=== PATIENT | male | born 1995 | race Caucasian/White ===

== ENCOUNTER 2025-06-13 02:15 | Day surgery (SDC) | payer OTHER, SELFPAY ==
[2025-06-09 10:20] VITALS: BMI 24.6
--- NOTE | 2025-06-09 10:25 | PC.NURSE ---
[facility] has started construction of its new state of the art ER which will open Spring 2026. With this, we anticipate parking may be a challenge for some our surgical patients and families. Parking spaces are limited but are available for all Surgical, obstetrics, and ER patients sharing this lot. If you arrive and find you are having a hard time finding a parking space, please note that we understand the challenges, please drive around the hospital and park near Hospital Entrance 1. When you enter this entrance, you can ask a volunteer to direct or take you back to the surgical waiting area to check in. We appreciate everyone?s understanding of these expected challenges while we build for your future. Report to the Outpatient Waiting Room, entrance under the green pavilion located off [address], at time _0930 on date _06/13/25_. Planned Procedure Time: __1130_.? Time changes happen often and if your time is changed the preop area will call you the afternoon before. - You and your visitor will be asked to self-screen and do not enter if you have any COVID symptoms. Please call surgeon if you need to reschedule. - A mask is optional within the hospital at this time. Patients may have clear liquids (water, carbonated beverages, clear teas, apple juice) until 3 hours prior to surgery with a maximum of 20 ounces. - No food from midnight until time of surgery and no smoking, or chewing tobacco (or any form of nicotine). No chewing gum, candy or mints. Take only the following medications with a SIP of water on the morning of surgery: NONE DO NOT STOP ANY OF YOUR OTHER PRESCRIPTION MEDICATIONS PRIOR TO SURGERY EXCEPT THE FOLLOWING Hold all vitamins and supplements for 3 days per anesthesiologist. Medications to discontinue per physician Date to take last dose Please no make-up, nail greek, hairspray, perfume, deodorant, or body powder the day of surgery.? No jewelry (including any body piercings) or valuables the day of surgery, leave them at home.? Please take a shower or bath the night before, or the morning of, surgery with an antibacterial soap.? Wear comfortable, loose fitting clothing.? Children are encouraged to wear pajamas. - Jewelry must be removed prior to entering the operating room.? Rings and piercings that are not removed may be cut off. - The hospital will not accept responsibility for valuables.? - Please leave all valuables, including medications, at home the day of surgery. If you are going home after surgery, a licensed pole truck driver must drive you home.? - NO public transportation without another adult if you receive anesthesia. - We recommend that an adult stay with you for 24 hours following discharge. - We also recommend that you do not drive, make important decision, drink alcoholic beverages, or take any drugs that were not prescribed by your health care provider for at least 24 hours after your discharge time. For Pediatric surgeries, we recommend two adults accompany the child home. Follow any additional instructions given to you from your surgeon. Telephone instructions given to __PATIENT__and asked if any additional questions and then verbalized understanding. Patient advised to call surgeon office or pre surgery nurse liaison [phone] if any additional questions.
[2025-06-13] VITALS (10 sets, daily range): BP systolic 100–130; BP diastolic 53–84; PULSE 47–60; RESP 10–20; TEMP 36.3–36.8; O2SAT 98–100; BMI 24.6
[2025-06-13] MEDS: LACTATED RINGERS 1,000 ML 30 ML IV CONT (09:38)
--- NOTE | 2025-06-13 10:53 | P.HP_ITS ---
History of Present Illness History of Present Illness Consent: Risks, benefits, and alternatives have been discussed and questions answered. Patient agrees to proceed with procedure. Chief complaint: desires sterilization Narrative: Andrzej Newton is a 30 year old male who desires permanent sterilization and who presents today for bilateral vasectomy. He was recently evaluated in the urology office and had undergone a discussion of the risks, benefits, alt ernatives to vasectomy for sterilization and he expressed understanding and agreement to proceed. The patient denies any changes passes baseline today and is ready for the procedure. Review of Systems Review of Systems: Constitutional: No fevers or chills Eyes: No changes in vision HENT: No hearing loss Cardiovascular: No chest pain or palpitations Respiratory: No shortness of breath, cough, wheezing GI: No abdominal pain, nausea, or vomiting : No dysuria or difficulty urinating Heme: No easy bruising or bleeding Skin: No rash or itching MSK: No myalgias or joint pain Psych: No hallucinations Neuro: No lateralized numbness or tingling PMFSH Social History Social History Smoking status: Never smoker Alcohol intake: current Drinks per week: 2 Living arrangements: with family Meds Home Medications and Allergies Home Medications ?Medication ?Instructions ?Recorded ?Confirmed ?Type No Home Medications 06/09/25 06/09/25 H istory Allergies Allergy/AdvReac Type Severity Reaction Status Date / Time No Known Allergies Allergy Verified 06/13/25 10:52 Exam Narrative: General: Alert, no acute distress Head: Normocephalic, atraumatic Eyes: Extraocular movements intact Neck: No JVD, trachea midline Respiratory: Symmetric chest rise, nonlabored breathing on room air CV: Normal rate, adequate peripheral perfusion Abdomen: Soft, nontender, nondistended : Deferred Skin: Warm/dry Extremities: No peripheral edema, no cyanosis Neuro: No focal deficits Psych: Answers questions appropriately, appropriate mood Assessment and Plan Assessment and plan (1) Encounter for sterilization: Code(s): Z30.2 - Encounter for sterilization Status: Acute Assessment and Plan: 30yM who desires permanent sterilization - To OR for bilateral vasectomy - Risks, benefits, alternatives reviewed with the patient. He is amenable to proceed. - Anticipate discharge home thereafter
--- NOTE | 2025-06-13 10:53 | WPDHPUPDATE1 ---
History and Physical Update Update Date/Time: 06/13/25 10:53 History and Physical has been reviewed, including an updated exam of the patient. There are NO changes in the patient's condition. Risks, benefits, and alternatives have been discussed and questions answered. Patient agrees to proceed with procedure.
--- NOTE | 2025-06-13 11:02 | P.PNAN_ITS ---
Anes - Initial Pre Proc Eval Procedure: Operation Date: 06/13/25 11:30 Proposed Procedures p Bilateral Vasectomy - Taqueria Estrada MD Date/Time: 06/13/25 11:02 Surgeon: Taqueria Estrada MD Pre Op Diagnosis: desires sterilization Patient Data Age: 30 Gender: M Height: 1.78 m Weight: 77.8 kg Last Vital Signs Temp 36.8 C 06/13/25 09:38 Pulse 60 06/13/25 09:38 Resp 14 06/13/25 09:38 BP 122/67 06/13/25 09:38 Pulse Ox 99 06/13/25 09:38 O2 Del Method Room Air 06/13/25 09:38 Allergies Allergy/AdvReac Type Severity Reaction Status Date / Time No Known Allergies Allergy Verified 06/13/25 10:52 Home Medications ?Medication ?Instructions ?Recorded ?Confirmed ?Type No Home Medications 06/09/25 06/09/25 H istory Patient hx anesthesia problems: none Family hx anesthesia problems: none Results Review: All pre-operative results and documents have been reviewed as part of the pre- operative evaluation. [facility] Social History Social History Smoking status: Never smoker Alcohol intake: current Drinks per week: 2 Living arrangements: with family Anes - Eval Final PreProcedure Day of Procedure 06/13/25 11:02 Patient weight: normal Heart: regular rate and rhythm Lungs: clear to auscultation and normal air movement Airway: Mallampati scale class II Neurological: alert and oriented Last oral intake: >/= 8 hours ASA classification: I Emergent: no Anesthetic plan: proceed Anesthesia type and monitoring: general GIVS and standard monitoring Results Review: All pre-operative results and documents have been reviewed as part of the pre- operative evaluation. Informed Consent: The patient's anesthetic plan and its attendant risks and benefits were discussed with the patient/family/POA. Questions were solicited and answers provided to the satisfaction of the patient/family/POA.
[2025-06-13] MEDS: ceFAZolin 2 GM in SODIUM CHLORIDE 0.9% IV 50 ML 100 ML IVPB (11:14)
--- NOTE | 2025-06-13 11:27 | S_PTH ---
PATIENT: Andrzej Newton LOC: [facility] U#:[id number] AGE/SX: 30/M ROOM: RE06/13/[address]: Taqueria Estrada MD : 1995 BED: DIS: 06/13/2025 SPEC #: [id number] RECD: 06/13/25 13:02 STATUS: RHONA REQ #: [id number] LUCIO: 06/13/25 11:[address]: Taqueria Estrada DEPT: [facility] Surgical RECD BY: Mahogany Benitez MLT, ([facility]) ENTERED: 06/13/25 13:02 SP TYPE: Surgical OTHR DR: Yuridia HillMD Tissues: A - Vas Deferens B - Vas Deferens Procedures: Gross Exam Level 1
[2025-06-13] MEDS: BUPivacaine HCL 0.25% PF 10 ML VIAL INFILTRATE (11:34)
--- NOTE | 2025-06-13 11:46 | W.PM.PROC2 ---
Procedure Note - Detailed Date of Procedure 06/13/25 Pre-op Diagnosis desires sterilization Post-op Diagnosis Same Procedure Performed 1. Bilateral vasectomy Surgeon Taqueria Estrada MD Anesthesia General Description of Procedure Under sterile conditions, 0.25% plain marcaine was administered to provide local skin anesthesia and a regional vasal block. Next, the no-scalpel vasectomy approach was used and Bob forceps were used to spread the skin open the right upper hemiscrotum. A clamp was used to grasp the right vas deferens, which was brought out through the skin opening. A scalpel was used to incise the sheath of the vas and Adson forceps were used to grasp the vas and deliver it out of the sheath. The vas was dissected free of any attachments and a clamp was placed on either side of the freed vas. Next, a 1-2 cm segment of the right vas was cut and collected for pathologic analysis. Thermal cautery was used to cauterize both free ends of the cut vas and a 2-0 silk tie was used to occlude both free ends of the vas underneath both clamps. Attention was then drawn to the left hemiscrotum and the left vas deferens was excised in the exact same fashion. The area was then inspected thoroughly and excellent hemostasis was confirmed. The vas was then reduced back into the scrotum bilaterally. A single horizontal mattress suture of 3-0 chromic was used to close the skin entrance sites on the bilateral upper hemiscrotum. Antibiotic ointment was applied to the entrance sites and gauze was placed over top. The patient tolerated the procedure well and there were no complications noted.
[2025-06-13] MEDS: oxyCODONE HCL (*CRX) 5 MG TAB IR PO (13:24)
== END 2025-06-13 13:55 | disposition home or self-care (01) ==
PROVIDERS: PCP Internal Medicine Geriatric Medicine; Visit Provider Urology
PROC: (CPT 55250; principal; 2025-06-13 11:30)
DX: Z30.2 Encounter for sterilization (principal); Z98.890 Other specified postprocedural states
CPT/HCPCS: 55250; 88300; J0690; A9270; J2003; J2250; J2405; J2704; J3010; J7120